=== PATIENT | female | born 1995 | race Caucasian/White ===

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

== ENCOUNTER 2017-02-08 11:20 | Emergency (ER) | payer OTHER ==
--- NOTE | 2017-02-08 12:36 | UC ---
Lower Extremity/Ankle HPI - HPI Summary HPI Summary: did a little skip yesterday and inverted ankle able to bear wt pain and swelling worse today - History of Current Complaint Chief Complaint: UCLowerExtremity Stated Complaint: LEFT FOOT INJURY Time Seen by Provider: 02/08/17 12:29 Hx Last Menstrual Period: 01/30/17 Onset/Duration: Sudden Onset Severity Initially: Mild Severity Currently: Moderate Pain Intensity: 4 Pain Scale Used: 0-10 Numeric Aggravating Factor(s): Standing, Ambulation Alleviating Factor(s): Rest Able to Bear Weight: Yes - Allergies/Home Medications Allergies/Adverse Reactions: Allergies Allergy/AdvReac Type Severity Reaction Status Date / Time No Known Allergies Allergy Verified 02/08/17 12:00 Home Medications: Home Medications Norgestimate-Ethinyl Estradiol [Sprintec 28 0.25-35 mg-Mcg] 1 tab PO DAILY 02/08 [History Confirmed 02/08/17] PMH/Surg Hx/FS Hx/Imm Hx Previously Healthy: Yes - Surgical History Surgical History: None - Family History Known Family History: Positive: Hypertension, Other - dad repair of congenital defect ?ASD Negative: Respiratory Disease - Social History Alcohol Use: Weekly Alcohol Amount: weekends Substance Use Type: None Smoking Status (MU): Never Smoked Tobacco - Immunization History Most Recent Influenza Vaccination: 01/2017 Review of Systems Constitutional: Negative Skin: Bruising Eyes: Negative ENT: Negative Respiratory: Negative Cardiovascular: Negative Gastrointestinal: Negative Genitourinary: Negative Motor: Negative Neurovascular: Negative Musculoskeletal: Arthralgia Neurological: Negative Psychological: Negative Is Patient Immunocompromised?: No All Other Systems Reviewed And Are Negative: Yes Physical Exam Triage Information Reviewed: Yes Appearance: Well-Appearing, No Pain Distress, Well-Nourished Vital Signs: Initial Vital Signs Temp 98 F 02/08/17 11:56 Pulse 90 02/08/17 11:56 Resp 14 02/08/17 11:56 BP 166/61 02/08/17 11:56 Pulse Ox 100 02/08/17 11:56 Vital Signs Reviewed: Yes Eyes: Positive: Conjunctiva Clear ENT: Positive: Hearing grossly normal. Negative: Nasal congestion, Nasal drainage, Trismus, Muffled/hoarse voice Neck: Positive: Supple, Nontender Respiratory: Positive: Lungs clear, Normal breath sounds, No respiratory distress, No accessory muscle use Cardiovascular: Positive: RRR, No Murmur Musculoskeletal: Positive: ROM Intact Neurological: Positive: Alert Psychological Exam: Normal Skin Exam: Normal Diagnostics - Radiology No standard instances Xray Interpretation: No Acute Changes Radiology Interpretation Completed By: Radiologist Lower Extremity Course/Dx - Differential Dx/Diagnosis Provider Diagnoses: left foot sprain Discharge - Discharge Plan Condition: Stable Disposition: HOME Patient Education Materials: Foot Sprain (ED) Referrals: Wali Aburto MD [Medical Doctor] - (recheck in 1-2 weeks if not able to bear wt pain free) Additional Instructions: rest elevate ice advil 3 pills 4x day with food for pain or aleve 2 pills 2x day with food for pain CAM boot when ambulating I expect bruising and swelling to worsen get rechecked in 1-2 weeks if unable to bear wt pain free Images Feet (Multiple View): 1 - swollen/ecchymotic, no tenderness of lat malleolus
[2017-02-08 12:55] VITALS: BP 115/58
--- NOTE | 2017-02-08 12:58 | RAD ---
HISTORY: Left foot injury, pain COMPARISONS: None VIEWS: 3, Frontal, lateral, and oblique views of the left foot FINDINGS: BONE DENSITY: Normal. BONES: There is no displaced fracture. JOINTS: There is no arthropathy. ALIGNMENT: There is no dislocation. SOFT TISSUES: Unremarkable. OTHER FINDINGS: None. IMPRESSION: NO ACUTE OSSEOUS INJURY. IF SYMPTOMS PERSIST, RECOMMEND REPEAT IMAGING.
== END 2017-02-08 13:13 | disposition home or self-care (01) ==
LOC: UCCORT 11:20
DX: S93.602A Unspecified sprain of left foot, initial encounter (principal); X50.0XXA Overexertion from strenuous movement or load, initial encounter; Y93.9 Activity, unspecified; Y92.9 Unspecified place or not applicable; Y99.9 Unspecified external cause status
CPT/HCPCS: 99212; G0463

== ENCOUNTER 2018-04-11 09:08 | Emergency (ER) | payer OTHER ==
[2018-04-11 09:41] VITALS: BP 119/71
--- NOTE | 2018-04-11 10:25 | UC ---
Complaint Female HPI - HPI Summary HPI Summary: Patient has had increased pain on the left side of her labia for the past few days. she does have a new sex partner and has noticed a brownish discharge, did take a diflucan which did not help. - History Of Current Complaint Chief Complaint: UCGU Stated Complaint: PERSONAL Time Seen by Provider: 04/11/18 09:59 Hx Obtained From: Patient Hx Last Menstrual Period: 02/2018 ?: No Onset/Duration: Sudden Onset, Lasting Days - 2 Timing: Constant Severity Initially: Moderate Severity Currently: Moderate Pain Intensity: 6 Aggravating Factor(s): [place] Alleviating Factor(s): Position Associated Signs And Symptoms: Positive: Vaginal Discharge - Allergies/Home Medications Allergies/Adverse Reactions: Allergies Allergy/AdvReac Type Severity Reaction Status Date / Time No Known Allergies Allergy Verified 02/08/17 12:00 Home Medications: Home Medications Norethindrone-Ethinyl Estrad [Pirmella ] 1 tab PO DAILY 04/11/18 [History Confirmed 04/11/18] PMH/Surg Hx/FS Hx/Imm Hx Previously Healthy: Yes - Surgical History Surgical History: None - Family History Known Family History: Positive: Hypertension, Other - dad repair of congenital defect ?ASD Negative: Respiratory Disease - Social History Alcohol Use: Occasionally Alcohol Amount: weekends Substance Use Type: None Smoking Status (MU): Never Smoked Tobacco - Immunization History Most Recent Influenza Vaccination: 01/2017 Review of Systems All Other Systems Reviewed And Are Negative: Yes Constitutional: Positive: Negative Skin: Positive: Other - swelling of labia Eyes: Positive: Negative ENT: Positive: Negative Respiratory: Positive: Negative Cardiovascular: Positive: Negative Gastrointestinal: Positive: Negative Genitourinary: Positive: Negative, Vaginal/Penile Discharge Motor: Positive: Negative Neurovascular: Positive: Negative Musculoskeletal: Positive: Negative Neurological: Positive: Negative Psychological: Positive: Negative Is Patient Immunocompromised?: No Physical Exam Triage Information Reviewed: Yes Appearance: Well-Appearing, Well-Nourished, Pain Distress Vital Signs: Initial Vital Signs Temp 98.2 F 04/11/18 09:33 Pulse 73 04/11/18 09:33 Resp 14 04/11/18 09:33 BP 119/71 04/11/18 09:33 Pulse Ox 99 04/11/18 09:33 Vital Signs Reviewed: Yes Eye Exam: Normal ENT Exam: Normal Dental Exam: Normal Neck exam: Normal Respiratory Exam: Normal Respiratory: Positive: Chest non-tender, Lungs clear, Normal breath sounds Cardiovascular Exam: Normal Cardiovascular: Positive: RRR, No Murmur, Pulses Normal Abdominal Exam: Normal Abdomen Description: Positive: Nontender, No Organomegaly, Soft Bowel Sounds: Positive: Present Pelvic Exam: Positive: External Exam Normal, No Cerv. Motion Tender, No Masses, Blood - small amount of flow noted,, Discharge - greenish brown drainage noted, no odor,, Mass - small lump felt on the left labia, painful on palpation, no pustule or drainage noted Musculoskeletal Exam: Normal Neurological Exam: Normal Psychological Exam: Normal Skin Exam: Normal Complaint Female Dx - Course Course Of Treatment: hx obtained,exam performed ,meds reviewed, internal exam and cultures taken, educated on care of possible cyst that could be forming. started on Antibiotics for abcess. - Differential Dx/Diagnosis Differential Diagnosis/HQI/PQRI: Bartholin Cyst, Pelvic Inflammatory Disease, Sexually Transmitted Disease Provider Diagnosis: Vaginitis Discharge - Sign-Out/Discharge Documenting (check all that apply): Patient Departure All imaging exams completed and their final reports reviewed: No Studies - Discharge Plan Condition: Stable Disposition: HOME Prescriptions: Cephalexin CAP* [Keflex CAP*] 500 mg PO TID #21 cap Referrals: No Primary Care Phys,NOPCP [Primary Care Provider] - Additional Instructions: 1. take the keflex 3 times a day for 7 days 2. Warm water soaks for the next few days. 3. It may produce a head that will begin to drain. 4. If the area becomes more swollen and tender even with treatement follow up for further treatment. 5. Your lab work witll be available in 2-3 days, we call with any positive results - Billing Disposition and Condition Condition: STABLE Disposition: Home
== END 2018-04-11 10:32 | disposition home or self-care (01) ==
LOC: UCCORT 09:08
DX: N76.0 Acute vaginitis (principal)
CPT/HCPCS: 87480; 87491; 87510; 87591; 87661; 99212; G0463

== ENCOUNTER 2018-04-14 13:35 | Emergency (ER) | payer OTHER ==
[2018-04-14 14:18] VITALS: BP 137/75
--- NOTE | 2018-04-14 14:30 | UC ---
UC General HPI - HPI Summary HPI Summary: pt seen about 3 days ago for L labial pain and swelling. tx keflex. she returns for worsening. she had cultures from prior visit for GC, chlamydia and trich. those were negative. denies hx herpes. admits to new partner and oral sex 2 weeks ago. no fever or abdominal pain. pt did miss a couple of BCP's recently. - History of Current Complaint Chief Complaint: UCGU Stated Complaint: PERSONAL - RECHECK Time Seen by Provider: 04/14/18 14:21 Hx Obtained From: Patient Hx Last Menstrual Period: "I don't even know ... " skipped sugar pills in most recent BCP pack Onset/Duration: Gradual Onset Timing: Constant Pain Intensity: 5 Aggravating: urine touching areas is very painful Associated Signs & Symptoms: Negative: Abdominal Pain, Dysuria, Fever - Allergy/Home Medications Allergies/Adverse Reactions: Allergies Allergy/AdvReac Type Severity Reaction Status Date / Time No Known Allergies Allergy Verified 04/14/18 14:10 PMH/Surg Hx/FS Hx/Imm Hx Previously Healthy: Yes - Surgical History Surgical History: None - Family History Known Family History: Positive: Hypertension, Other - dad repair of congenital defect ?ASD Negative: Respiratory Disease - Social History Occupation: Student Lives: Dormitory/Roommates Alcohol Use: Occasionally Alcohol Amount: weekends Substance Use Type: None Smoking Status (MU): Never Smoked Tobacco - Immunization History Most Recent Influenza Vaccination: 01/2017 Vaccination Up to Date: Yes Review of Systems All Other Systems Reviewed And Are Negative: Yes Constitutional: Positive: Negative Skin: Positive: Rash - genital Eyes: Positive: Negative ENT: Positive: Negative Respiratory: Positive: Negative Cardiovascular: Positive: Negative Gastrointestinal: Positive: Negative Genitourinary: Positive: Negative Motor: Positive: Negative Neurovascular: Positive: Negative Musculoskeletal: Positive: Negative Neurological: Positive: Negative Psychological: Positive: Negative Physical Exam Triage Information Reviewed: Yes Appearance: Well-Appearing Vital Signs: Initial Vital Signs Temp 98.3 F 04/14/18 14:11 Pulse 76 04/14/18 14:11 Resp 16 04/14/18 14:11 BP 137/75 04/14/18 14:11 Pulse Ox 99 04/14/18 14:11 Vital Signs Reviewed: Yes Eyes: Positive: Conjunctiva Clear ENT: Positive: Normal ENT inspection Neck: Positive: Supple, Nontender, No Lymphadenopathy Respiratory: Positive: Lungs clear, Normal breath sounds Cardiovascular: Positive: RRR, No Murmur Abdomen Description: Positive: Nontender, No Organomegaly, Soft, Other: - L inguinal chain adenopathy. Negative: Distended, Guarding Pelvic Exam: Positive: Other - External inspection shows vesicles and ulcerations, culture opbtained. No internal exam, this was done on last visit with non viral cultures done at that time. Musculoskeletal: Positive: ROM Intact Neurological: Positive: Alert Psychological: Positive: Age Appropriate Behavior Skin Exam: Normal Diagnostics - Laboratory Diagnostic Studies Completed/Ordered: URINE HCG=NEG Course/Dx - Course Course Of Treatment: neg GC, chlamydia and trich from prior cultures. herpes culture is pending but exam is c/w herpes - Diagnoses Provider Diagnosis: Genital herpes Discharge - Sign-Out/Discharge Documenting (check all that apply): Patient Departure All imaging exams completed and their final reports reviewed: No Studies - Discharge Plan Condition: Stable Disposition: HOME Prescriptions: ValACYclovir (*) [Valtrex 1 GM(*)] 1 gm PO BID 10 Days #20 tab Patient Education Materials: Genital Herpes Simplex (ED) Referrals: [facility] [Outside] - 7 Days Additional Instructions: FOLLOW UP WITH [facility] OR YOUR JOB SUPERINTENDENT ON [place] WHEN YOU GO HOME FOR BREAK. - Billing Disposition and Condition Condition: STABLE Disposition: Home
== END 2018-04-14 16:09 | disposition home or self-care (01) ==
LOC: UCCORT 13:35
DX: A60.00 Herpesviral infection of urogenital system, unspecified (principal)
CPT/HCPCS: 84702; 87529; 99212; G0463

== ENCOUNTER 2019-03-28 12:13 | Emergency (ER) | payer OTHER ==
[2019-03-28 13:31] VITALS: BP 122/63
--- NOTE | 2019-03-28 13:45 | UC ---
FLU HPI - HPI Summary HPI Summary: 23-year-old female who had cough and cold symptoms approximately 2 weeks ago which she states totally resolved and then , 5 days ago she started having cold symptoms again with head congestion sinus pressure body aches and an occasional productive cough of green sputum. She is a nonsmoker. - History of Current Complaint Chief Complaint: UCGeneralIllness Stated Complaint: CONGESTION,COUGH,MARTINEZ,BODY ACHES Time Seen by Provider: 03/28/19 13:45 Hx Obtained From: Patient Hx Last Menstrual Period: 03/20/19 ?: No Onset/Duration: Gradual Onset, Lasting Weeks Severity Currently: Mild Severity Initially: Mild Pain Intensity: 7 Associated Signs & Symptoms: Positive: Fever, Cough, Nasal Congestion - Allergy/Home Medications Allergies/Adverse Reactions: Allergies Allergy/AdvReac Type Severity Reaction Status Date / Time No Known Allergies Allergy Verified 03/28/19 13:28 Home Medications: Home Medications D-Methorphan/PE/Acetaminophen [Cold Relief/Non-Drowsy/Da 10-5-325 mg] 1 tab PO ONCE 03/28/19 [History Confirmed 03/28/19] PMH/Surg Hx/FS Hx/Imm Hx Previously Healthy: Yes - Surgical History Surgical History: None - Family History Known Family History: Positive: Hypertension, Other - dad repair of congenital defect ?ASD Negative: Respiratory Disease - Social History Occupation: Student Lives: Dormitory/Roommates Alcohol Use: Weekly Alcohol Amount: weekends Substance Use Type: None Smoking Status (MU): Never Smoked Tobacco - Immunization History Most Recent Influenza Vaccination: 01/2017 Vaccination Up to Date: Yes Review of Systems All Other Systems Reviewed And Are Negative: Yes Constitutional: Positive: Fever, Chills ENT: Positive: Sore Throat - Sore throat has resolved., Nasal Discharge, Sinus Congestion Respiratory: Positive: Cough - Productive cough with occasional green sputum. Is Patient Immunocompromised?: No Physical Exam Triage Information Reviewed: Yes Appearance: Well-Appearing, No Pain Distress, Well-Nourished Vital Signs: Initial Vital Signs Temp 100.3 F 03/28/19 13:26 Pulse 73 03/28/19 13:26 Resp 14 03/28/19 13:26 BP 122/63 03/28/19 13:26 Pulse Ox 99 03/28/19 13:26 Vital Signs Reviewed: Yes Eyes: Positive: Conjunctiva Clear ENT: Positive: Pharynx normal, Nasal congestion, Nasal drainage - Clear nasal coryza, TMs normal, Uvula midline Neck: Positive: Supple, Nontender, No Lymphadenopathy Respiratory: Positive: No respiratory distress, No accessory muscle use, Rhonchi - . Mild rhonchi right upper lobe posteriorly. Cardiovascular: Positive: RRR, No Murmur, Pulses Normal, Brisk Capillary Refill Abdomen Description: Positive: Nontender, No Organomegaly, Soft. Negative: CVA Tenderness (R), CVA Tenderness (L), Distended, Guarding, Hepatomegaly, McBurney' s Point Tenderness, Splenomegaly Bowel Sounds: Positive: Present Musculoskeletal Exam: Normal Neurological Exam: Normal Psychological Exam: Normal Skin Exam: Normal Flu Course/Dx - Course Course Of Treatment: Rapid flu test negative: Chest x-ray:VIEWS: 4: Frontal dual-energy and lateral views of the chest. FINDINGS: CARDIOMEDIASTINAL SILHOUETTE: The cardiomediastinal silhouette is normal. ART: The art are normal. PLEURA: The costophrenic angles are sharp. No pleural abnormalities are noted. LUNG PARENCHYMA: The lungs are clear. ABDOMEN: The upper abdomen is clear. There is no subphrenic gas. BONES AND SOFT TISSUES: No bone or soft tissue abnormalities are noted. OTHER: None. IMPRESSION : NO ACTIVE CARDIOPULMONARY DISEASE. Patient is comfortable here. I believe this is the community viral illness that is going around. She states increase fluids, rest and follow-up with her primary care provider if no improvement in 3 or 4 days. - Differential Dx/Diagnosis Provider Diagnosis: URI (upper respiratory infection) Discharge ED - Sign-Out/Discharge Documenting (check all that apply): Patient Departure All imaging exams completed and their final reports reviewed: Yes - Discharge Plan Condition: Good Disposition: HOME Patient Education Materials: Upper Respiratory Infection (DC) Forms: *School Release Referrals: No Primary Care Phys,NOPCP [Primary Care Provider] - MARY NAJERA [[employer], OTHER] - Additional Instructions: Increase fluids, [id number] cold medicines as directed. [facility] if no improvement in 4 or 5 days. - Billing Disposition and Condition Condition: GOOD Disposition: Home
[2019-03-28 13:49] LABS: Influenza A Molecular NEGATIVE (Negative); Influenza B Molecular NEGATIVE (Negative)
== END 2019-03-28 14:31 | disposition home or self-care (01) ==
LOC: UCCORT 12:13
DX: J06.9 Acute upper respiratory infection, unspecified (principal)
CPT/HCPCS: 71046; 99211; G0463

== ENCOUNTER 2019-06-26 09:21 | Emergency (ER) | payer OTHER ==
[2019-06-26 11:01] VITALS: BP 113/54
--- NOTE | 2019-06-26 11:09 | UC ---
FLU HPI - HPI Summary HPI Summary: 23yo female presenting with "possible flu." Notes sore throat x2 days and fever and body aches since last night. Denies sob and wheezing. Denies n/v. Denies decreased oral intake. Taking nyquil for symptom relief. - History of Current Complaint Chief Complaint: UCGeneralIllness Stated Complaint: FEVER,BODY ACHES,ST Hx Obtained From: Patient Hx Last Menstrual Period: 06/22/19 Pain Intensity: 6 Pain Scale Used: 0-10 Numeric - Allergy/Home Medications Allergies/Adverse Reactions: Allergies Allergy/AdvReac Type Severity Reaction Status Date / Time No Known Allergies Allergy Verified 06/26/19 11:02 Home Medications: Home Medications Norethindrone-E.estradiol-Iron [Junel Fe 24 1-20 mg-Mcg(24)] 1 tab PO DAILY [History Confirmed 06/26/19] PMH/Surg Hx/FS Hx/Imm Hx - Surgical History Surgical History: None - Family History Known Family History: Positive: Hypertension, Other - dad repair of congenital defect ?ASD Negative: Respiratory Disease - Social History Alcohol Use: Weekly Alcohol Amount: weekends Substance Use Type: None Smoking Status (MU): Never Smoked Tobacco - Immunization History Most Recent Influenza Vaccination: 01/2017 Vaccination Up to Date: Yes Review of Systems All Other Systems Reviewed And Are Negative: Yes Constitutional: Positive: Fever, Chills ENT: Positive: Sore Throat Respiratory: Positive: Negative. Negative: Cough Cardiovascular: Positive: Negative Gastrointestinal: Positive: Negative Musculoskeletal: Positive: Myalgia Neurological/Mental Status: Positive: Negative Physical Exam - Summary Physical Exam Summary: Vital Signs Reviewed: Yes A+Ox3, no distress Eyes: Conjunctiva Clear ENT: Hearing grossly normal, TM x 2 clear, moist, uvula midline, no exudate, no erythema Neck: Positive: Supple Respiratory: Positive: No respiratory distress, No accessory muscle use + CTA throughout no w/r Cardiovascular: RRR nl s1, s2 no m/r Musculoskeletal Exam: YU x 4 without difficulty Neurological: Positive: Alert Psychological: Positive: age appropriate behavior Skin: Positive: no rash, no ecchymosis Vital Signs: Initial Vital Signs Temp 99.5 F 06/26/19 10:58 Pulse 82 06/26/19 10:58 Resp 18 06/26/19 10:58 BP 113/54 06/26/19 10:58 Pulse Ox 99 06/26/19 10:58 Lab Results 06/26/19 Range/Units 11:11 Influenza A (Rapid) Negative (Negative) Influenza B (Rapid) Negative (Negative) Flu Course/Dx - Course Course Of Treatment: Negative rapid flu. Declined strep testing. Discussed viral illness and symptomatic treatment with patient. Instructed to return or follow-up with [facility] if symptoms worsen or persist. Patient voiced understanding and agreed with treatment plan. - Differential Dx/Diagnosis Differential Diagnosis/HQI/PQRI: Influenza, Upper Respiratory Infection Provider Diagnosis: Flu-like symptoms Discharge ED - Sign-Out/Discharge Documenting (check all that apply): Patient Departure All imaging exams completed and their final reports reviewed: No Studies - Discharge Plan Condition: Stable Disposition: HOME Patient Education Materials: Viral Syndrome (ED) Referrals: [facility] [Outside] - If Needed Additional Instructions: Your flu test was negative today. You may continue with over the counter cold medications as directed. Get plenty of rest and fluids. Return or follow up with the [facility] clinic listed below if symptoms worsen or do not improve within 5-7 days. - Billing Disposition and Condition Condition: STABLE Disposition: Home
[2019-06-26 11:22] LABS: Influenza A Molecular Negative (Negative); Influenza B Molecular Negative (Negative)
== END 2019-06-26 11:32 | disposition home or self-care (01) ==
LOC: UCCORT 09:21
DX: J02.9 Acute pharyngitis, unspecified (principal); R50.9 Fever, unspecified; M79.10 Myalgia, unspecified site
CPT/HCPCS: 99211; G0463